=== PATIENT | male | born 1945 | race Caucasian/White ===

== ENCOUNTER → 2020-06-20 | Outpatient (CLI) | payer MEDICARE | LOC: EXRD 06-13 11:30 | DX: M48.061 Spinal stenosis, lumbar region without neurogenic claudication (principal); M81.0 Age-related osteoporosis without current pathological fracture; M85.88 Other specified disorders of bone density and structure, other site | CPT/HCPCS: 77080 ==

== ENCOUNTER 2020-10-19 10:34 | Emergency (ER) | payer MEDICARE ==
[2020-10-19 11:30] LABS: HEMOGLOBIN 12.5 gm/dl (14.0-17.5); WHITE BLOOD COUNT 6.9 K/UL (4.5-11.0)
[2020-10-19 11:48] LABS: BUN/CREATININE RATIO 24 (0-10)
== END 2020-10-19 13:24 | disposition home or self-care (01) ==
LOC: ER1 10:34
PROVIDERS: Emergency Medicine
DX: M79.651 Pain in right thigh (principal); M54.9 Dorsalgia, unspecified; D64.9 Anemia, unspecified; K21.9 Gastro-esophageal reflux disease without esophagitis; Z87.442 Personal history of urinary calculi
CPT/HCPCS: 80053; 82550; 82553; 83874; 84484; 85025; 93005; 93971; 99284